=== PATIENT | female | born 1970 | race Caucasian/White ===

== ENCOUNTER 2019-01-13 21:13 | Emergency (ER) | payer MEDICAID, OTHER ==
[~2019-01-13] VITALS: Ht 157.5 cm; Wt 105.6 kg
[~2019-01-13 21:13] MED LIST: CYCL10TA7 PO; DICL50TA11 PO
[2019-01-13 21:36] VITALS: BP 134/82; PULSE 87; RESP 18; Ht 157.5 cm; Wt 105.6 kg
[2019-01-14] MEDS ORDERED: ACETAMINOPHEN 500 MG TAB PO STA (00:09)
[2019-01-14] MEDS ORDERED: CYCLOBENZAPRINE 10 MG TAB PO ONE (00:30)
== END 2019-01-14 01:23 | disposition home or self-care (01) ==
LOC: FTE 21:13
DX: M54.5 Low back pain (principal)
CPT/HCPCS: 81025; Z7610; 99283